=== PATIENT | female | born 1990 | race Asian ===

== ENCOUNTER 2016-04-16 16:57 | Emergency (ER) | payer OTHER ==
[2016-04-16] MEDS ORDERED: ONDANSETRON ODT 4 MG TABLET TL STA (19:40)
[2016-04-16] MEDS ORDERED: POTASSIUM BICARB 25 MEQ TABLET PO STA (19:40)
[2016-04-16] MEDS ORDERED: ONDANSETRON ODT 4 MG TABLET ONE (19:45)
[2016-04-16] MEDS ORDERED: POTASSIUM BICARB 25 MEQ TABLET PO ONE (19:45)
== END 2016-04-16 19:57 | disposition home or self-care (01) ==
DX: O03.9 Complete or unspecified spontaneous abortion without complication (principal); Z3A.01 Less than 8 weeks gestation of pregnancy
CPT/HCPCS: 36415; 76801; 76817; 80053; 81001; 81025; 83690; 84702; 85025; 99283; 99284; A9270; Q0162